=== PATIENT | male | born 1990 | race Caucasian/White ===

== ENCOUNTER 2023-09-11 16:01 | Outpatient (CLI) | payer OTHER ==
--- NOTE | 2023-09-14 09:57 | MRI Report ---
PROCEDURE: Femur/Thigh LT WO INDICATIONS: PERSISTENT HAMSTRING PAIN TECHNIQUE: Noncontrast coronal and sagittal T1 spin echo and STIR; axial STIR through the left femur. COMPARISON: None. FINDINGS: Image quality: Excellent. Bones: The visualized bone marrow demonstrates normal signal on all sequences. The overlying cortex appears intact. No fractures lines or intra-osseous lesions. Soft tissues: Mild tendinosis is seen at the left proximal hamstring tendon origin. No significant h amstring tendon tearing is seen. The the posterior compartment musculature and the distal tendon inse rtions appear to be intact. The remaining visualized musculature is normal in signal intensity and bu lk. No focal soft tissue edema. No soft tissue mass is seen. Trace left knee effusion and medial popl iteal cyst. No significant inguinal lymphadenopathy. Included portions of the pelvis demonstrate no a cute abnormality. IMPRESSION: 1.Mild left proximal hamstring tendinosis without significant tendon tearing identified. The posterio r compartment musculature and the distal hamstring insertions are intact. 2.No acute osseous abnormality. No focal muscle strain. Reviewed by: Raul Delgado MD on 09/14/2023 9:56 AM PST Approved by: Raul Delgado MD on 09/14/2023 9:56 AM PST Station ID: [id number]
== END 2023-09-11 16:02 | disposition home or self-care (01) ==
LOC: DI 16:01
PROVIDERS: ATTEND Family Medicine
DX: S76.309A Unspecified injury of muscle, fascia and tendon of the posterior muscle group at thigh level, unspecified thigh, initial encounter (principal); M67.88 Other specified disorders of synovium and tendon, other site

== ENCOUNTER 2023-09-21 07:27 | Outpatient (CLI) | payer OTHER ==
--- NOTE | 2023-09-21 09:54 | MRI Report ---
PROCEDURE: Lumbar Spine WO INDICATIONS: LUMBAR RADICULOPATHY TECHNIQUE: Noncontrast sagittal T1 spin echo and T2 fast echo, sagittal STIR, axial T1 and T2 fast spin echo thr ough the lumbar spine. In cases with scoliosis, additional coronal T2 fast spin echo may be performe d. COMPARISON: None. FINDINGS: Image quality: Excellent. Alignment and Curvature: There is normal bony alignment. Bone Marrow: Marrow is of normal overall signal. No acute vertebral body compression fractures. Spinal Cord: Conus medullaris terminates at the L1 level. Visualized cord demonstrates normal signa l and size. Paraspinous Soft Tissues: No paravertebral masses. Paraspinous musculature is normal in bulk. Suspe cted bilateral extrarenal pelvises. No ureteral dilation or significant hydronephrosis is seen. T12-L1: No significant spinal canal stenosis or neuroforaminal narrowing. L1-L2: No significant spinal canal stenosis or neuroforaminal narrowing. L2-L3: No significant spinal canal stenosis or neuroforaminal narrowing. L3-L4: No significant spinal canal stenosis or neuroforaminal narrowing. L4-L5: Mild facet hypertrophy and congenitally short pedicles, which result in mild narrowing of th e bilateral neural foramina without significant spinal canal stenosis. L5-S1: Mild facet hypertrophy and congenitally short pedicles, which result in mild narrowing of th e bilateral neural foramina without significant spinal canal stenosis. IMPRESSION: 1.Mild facet hypertrophy is seen at the L4-5 and L5-S1 levels resulting in mild bilateral foraminal n arrowing. 2.Congenitally short pedicles are seen throughout the lumbar spine. 3.No high-grade spinal canal stenosis or high-grade foraminal narrowing is seen. Reviewed by: Raul Delgado MD on 09/21/2023 9:53 AM PST Approved by: Raul Delgado MD on 09/21/2023 9:53 AM PST Station ID: [id number]
== END 2023-09-21 07:28 | disposition home or self-care (01) ==
LOC: DI 07:27
PROVIDERS: ATTEND Family Medicine
DX: M47.816 Spondylosis without myelopathy or radiculopathy, lumbar region (principal); M47.817 Spondylosis without myelopathy or radiculopathy, lumbosacral region